=== PATIENT | male | born 1975 | race Hispanic/Latino ===

== ENCOUNTER 2017-12-26 12:51 | Emergency (ER) | payer OTHER ==
[2017-12-26 12:57] VITALS: TEMP 98.5
[2017-12-26] MEDS ORDERED: Lidocaine 5% Patch TD SCH (13:15)
--- NOTE | 2017-12-26 13:15 | ED PDOC ---
Arrival/HPI - General Chief Complaint: Back Pain Time Seen by Provider: 12/26/17 13:10 Historian: Patient - History of Present Illness Narrative History of Present Illness (Text): 12/26/17 13:12 42 y/o male, no significant pmh, nkda, c/o lt. lower back pain x 2 days after lifting at work with no fall or trauma. Aching pain, aggravated by movement, no numbness or tingling, no urinary or bowel incontinence or retention, no night sweat, no flank pain, no other medical or psychological complaints. Past Medical History - Provider Review Nursing Documentation Reviewed: Yes - Cardiac Hx Cardiac Disorders: No - Pulmonary Hx Respiratory Disorders: No - Neurological Hx Neurological Disorder: No - HEENT Hx HEENT Disorder: No - Renal Hx Renal Disorder: No - Endocrine/Metabolic Hx Endocrine Disorders: No - Hematological/Oncological Hx Blood Disorders: No - Integumentary Hx Dermatological Disorder: No - Musculoskeletal/Rheumatological Hx Musculoskeletal Disorders: Yes Hx Back Pain: Yes - Gastrointestinal Hx Gastrointestinal Disorders: No - Genitourinary/Gynecological Hx Genitourinary Disorders: No - Psychiatric Hx Psychophysiologic Disorder: Yes Hx Depression: Yes Hx Substance Use: No Family/Social History - Physician Review Nursing Documentation Reviewed: Yes Family/Social History: Unknown Family HX Smoking Status: Never Smoked Hx Alcohol Use: No Hx Substance Use: No Allergies/Home Meds Allergies/Adverse Reactions: Allergies No Known Allergies Allergy (Verified 12/26/17 12:53) Review of Systems - Review of Systems Constitutional: absent: Fatigue, Fevers Eyes: absent: Vision Changes ENT: absent: Hearing Changes Respiratory: absent: SOB, Cough Cardiovascular: absent: Chest Pain Gastrointestinal: absent: Abdominal Pain, Nausea, Vomiting Musculoskeletal: Back Pain. absent: Arthralgias, Neck Pain, Myalgias Skin: absent: Rash, Pruritis Neurological: absent: Headache Psychiatric: absent: Anxiety, Depression, Suicidal Ideation Physical Exam Vital Signs Reviewed: Yes Vital Signs Temp Pulse Resp BP Pulse Ox 12/26/17 12:53 98.5 F 78 16 146/90 97 Temperature: Afebrile Blood Pressure: Normal Pulse: Regular Respiratory Rate: Normal Appearance: Positive for: Well-Appearing, Non-Toxic, Comfortable Pain Distress: Moderate Mental Status: Positive for: Alert and Oriented X 3 - Systems Exam Head: Present: Atraumatic, Normocephalic Pupils: Present: PERRL Extroacular Muscles: Present: EOMI Conjunctiva: Present: Normal Mouth: Present: Moist Mucous Membranes Neck: Present: Normal Range of Motion Respiratory/Chest: Present: Clear to Auscultation, Good Air Exchange. No: Respiratory Distress, Accessory Muscle Use Cardiovascular: Present: Regular Rate and Rhythm, Normal S1, S2. No: Murmurs Abdomen: No: Tenderness, Distention, Peritoneal Signs Back: Present: Normal Inspection, Other (LS spine: +TTP and spasm noted on the lt. paraspinal of the LS spine, no midline tenderness or step off, FROM without limitation, sensation intact, motor 5/5, neurovascular intact. ). No: CVA Tenderness, Midline Tenderness Upper Extremity: Present: Normal Inspection. No: Cyanosis, Edema Lower Extremity: Present: Normal Inspection. No: Edema Neurological: Present: GCS=15, CN II-XII Intact, Speech Normal Skin: Present: Warm, Dry, Normal Color. No: Rashes Psychiatric: Present: Alert, Oriented x 3, Normal Insight, Normal Concentration Medical Decision Making ED Course and Treatment: 12/26/17 13:14 Differential: sprain vs. strain vs. spasm -Toradol/valium/lidoderm -Observe and reassess 12/26/17 14:39 -Pt. feels much better, walking with normal gait and posture, no focal neurological deficits. -Discharge home with Ibuprofen, flexeril, lidoderm, bed rest, heat compression, follow up with your own pmd within 2 days, return to the ER for any new or worsening signs or symptoms. - Medication Orders Current Medication Orders: Lidocaine (Lidoderm) 1 ea TD DAILY [facility] Last Admin: 12/26/17 14:02 Dose: 1 ea MAR Transdermal Patch Site Document 12/26/17 14:02 FERNANDA (Rec: 12/26/17 14:02 FERNANDA [id number]) Transdermal Patch Site Transdermal Patch Site Left Lower Back Discontinued Medications Diazepam (Valium) 5 mg PO ONCE ONE PRN Reason: Protocol Stop: 12/26/17 13:11 Last Admin: 12/26/17 14:02 Dose: 5 mg Ketorolac Tromethamine (Toradol) 60 mg IM STAT STA Stop: 12/26/17 13:11 Last Admin: 12/26/17 14:03 Dose: 60 mg MAR Pain Assessment Document 12/26/17 14:03 FERNANDA (Rec: 12/26/17 14:03 FERNANDA [id number]) Pain Reassessment Is this a pain reassessment? No Sleep Is patient sleeping during reassessment? 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 Disposition/Present on Arrival - Present on Arrival Any Indicators Present on Arrival: No History of DVT/PE: No History of Uncontrolled Diabetes: No Urinary Catheter: No History of Decub. Ulcer: No History Surgical Site Infection Following: None - Disposition Have Diagnosis and Disposition been Completed?: Yes Diagnosis: Lumbar strain Disposition: HOME/ ROUTINE Disposition Time: 13:14 Patient Plan: Discharge Condition: IMPROVED Additional Instructions: -Discharge home with Ibuprofen, flexeril, lidoderm, bed rest, heat compression, follow up with your own pmd within 2 days, return to the ER for any new or worsening signs or symptoms. Prescriptions: Cyclobenzaprine [Cyclobenzaprine HCl] 10 mg PO TID PRN #21 tab PRN Reason: Other Ibuprofen [Motrin Tab] 600 mg PO QID PRN #30 tab PRN Reason: Other Lidocaine 5% [Lidoderm] 1 patch TOP DAILY PRN #14 patch PRN Reason: Other Referrals: [facility] [place] - Follow up with primary Forms: [employer] (K[place]akh), WORK NOTE
[2017-12-26 15:07] VITALS: BP 120/63; PULSE 72; RESP 18; O2SAT 98
== END 2017-12-26 16:31 | disposition home or self-care (01) ==
LOC: MERGE 12:51 → ED 12:51
DX: S39.012A Strain of muscle, fascia and tendon of lower back, initial encounter (principal); X50.9XXA Other and unspecified overexertion or strenuous movements or postures, initial encounter; Y99.0 Civilian activity done for income or pay
CPT/HCPCS: 96372; 99282; J1885

== ENCOUNTER 2018-01-06 09:36 | Emergency (ER) | payer OTHER ==
--- NOTE | 2018-01-06 09:55 | ED PDOC ---
Arrival/HPI - General Chief Complaint: Back Pain Time Seen by Provider: 01/06/18 09:40 Historian: Patient - History of Present Illness Narrative History of Present Illness (Text): 01/06/18 09:50 42yo male with history of lumbar spine herniated disc bib EMS for complaint of severe spasm lower back pain. States that his back pain stopped for years, and then started again last month. He was seen here for the back pain last week. States the pain improved with the medication he was given, but then it started again. He was seen by a pain management on and was given ??muscle relaxer and Ibuprofen. States the crampy/spasm pain became worse this morning. He notes that he only took a muscle relaxer this morning. Denies urinary/fecal incontinence, saddle anesthesia, abdominal pain, focal weakness, fever, chills, urinary symptoms, any other complaint. Past Medical History - Provider Review Nursing Documentation Reviewed: Yes - Infectious Disease Hx of Infectious Diseases: None - Cardiac Hx Cardiac Disorders: No - Pulmonary Hx Respiratory Disorders: No - Neurological Hx Neurological Disorder: No - HEENT Hx HEENT Disorder: No - Renal Hx Renal Disorder: No - Endocrine/Metabolic Hx Endocrine Disorders: No - Hematological/Oncological Hx Blood Disorders: No - Integumentary Hx Dermatological Disorder: No - Musculoskeletal/Rheumatological Hx Musculoskeletal Disorders: Yes Hx Back Pain: Yes - Gastrointestinal Hx Gastrointestinal Disorders: No - Genitourinary/Gynecological Hx Genitourinary Disorders: No - Psychiatric Hx Psychophysiologic Disorder: Yes Hx Depression: Yes Hx Substance Use: No Family/Social History - Physician Review Nursing Documentation Reviewed: Yes Family/Social History: Unknown Family HX Smoking Status: Never Smoked Hx Alcohol Use: No Hx Substance Use: No Allergies/Home Meds Allergies/Adverse Reactions: Allergies No Known Allergies Allergy (Verified 01/06/18 09:48) Review of Systems - Physician Review All systems were reviewed & negative as marked: Yes - Review of Systems Constitutional: Normal Eyes: Normal ENT: Normal Respiratory: Normal Cardiovascular: Normal Gastrointestinal: Normal Genitourinary Male: Normal Musculoskeletal: Back Pain Skin: Normal Neurological: Normal Endocrine: Normal Hemo/Lymphatic: Normal Psychiatric: Normal Physical Exam Vital Signs Reviewed: Yes Vital Signs Temp Pulse Resp BP Pulse Ox 01/06/18 09:46 98.1 F 88 18 165/100 H 99 Temperature: Afebrile Blood Pressure: Normal Pulse: Regular Respiratory Rate: Normal Appearance: Positive for: Well-Appearing, Non-Toxic, Comfortable Pain Distress: None Mental Status: Positive for: Alert and Oriented X 3 - Systems Exam Head: Present: Atraumatic, Normocephalic Pupils: Present: PERRL Extroacular Muscles: Present: EOMI Conjunctiva: Present: Normal Mouth: Present: Moist Mucous Membranes Neck: Present: Normal Range of Motion Respiratory/Chest: Present: Clear to Auscultation, Good Air Exchange. No: Respiratory Distress, Accessory Muscle Use Cardiovascular: Present: Regular Rate and Rhythm, Normal S1, S2. No: Murmurs Abdomen: No: Tenderness, Distention, Peritoneal Signs Back: Present: Midline Tenderness, Paraspinal Tenderness, Pain with Leg Raise Upper Extremity: Present: Normal Inspection. No: Cyanosis, Edema Lower Extremity: Present: Normal Inspection. No: Edema Neurological: Present: GCS=15, CN II-XII Intact, Speech Normal Skin: Present: Warm, Dry, Normal Color. No: Rashes Psychiatric: Present: Alert, Oriented x 3, Normal Insight, Normal Concentration Medical Decision Making ED Course and Treatment: 01/06/18 11:35 PT presented for stated history. He was in mild physical discomfort on presentation. He was however neurologically intact and hemodynamically stable. His pain was controlled in ED with medication. He notes that his pain improved significantly on re evaluation LS CT was ordered to r/o LS abscess or any worsening derangement LS CT Left sided osteophyte with foraminal stenosis at L5-S1 Result was DW the pt. He was ambulatory on DC. He have a pain management and was advised to f/u with the pain management. He have analgesia and muscle relaxer at home. Rx of Lidoderm was added. - RAD Interpretation Radiology Orders: 01/06/18 09:48 LUMBAR SPINE W/O CONTRAST [CT] Stat - Medication Orders Current Medication Orders: Discontinued Medications Dexamethasone (Decadron Inj) 10 mg IM STAT STA Stop: 01/06/18 09:50 Last Admin: 01/06/18 09:54 Dose: 10 mg IM Administration Charges Document 01/06/18 09:54 [facility] (Rec: 01/06/18 09:54 [facility] [id number]) Injection Site MAR Injection Site Left Deltoid Charges for Administration # of IM Administrations 1 Diazepam (Valium) 2 mg PO ONCE ONE PRN Reason: Protocol Stop: 01/06/18 09:50 Last Admin: 01/06/18 09:54 Dose: 2 mg Ketorolac Tromethamine (Toradol) 30 mg IM STAT STA Stop: 01/06/18 09:50 Last Admin: 01/06/18 09:53 Dose: 30 mg MAR Pain Assessment Document 01/06/18 09:53 [facility] (Rec: 01/06/18 09:54 [facility] [id number]) Pain Reassessment Is this a pain reassessment? No Sleep Is patient sleeping during reassessment? No Presence of Pain Presence of Pain Yes Pain Scale Used Pain Scale Used Numeric Location Pain Location Body Site Back Description Intensity of Pain at present 10 IM Administration Charges Document 01/06/18 09:53 [facility] (Rec: 01/06/18 09:54 [facility] [id number]) Charges for Administration # of IM Administrations 1 Disposition/Present on Arrival - Present on Arrival Any Indicators Present on Arrival: No History of DVT/PE: No History of Uncontrolled Diabetes: No Urinary Catheter: No History of Decub. Ulcer: No History Surgical Site Infection Following: None - Disposition Have Diagnosis and Disposition been Completed?: Yes Diagnosis: Back pain Disposition: HOME/ ROUTINE Disposition Time: 11:40 Patient Plan: Discharge Condition: STABLE Discharge Instructions (ExitCare): Low Back Pain in Adults Additional Instructions: Follow up with your Doctor/Pain management Rest and continue with your medication Return to ED for any new or worsening symptoms Prescriptions: Lidocaine 5% [Lidoderm] 1 patch TOP BID #12 patch Referrals: America Paniagua MD [Medical Doctor] - Follow up with primary Forms: [employer] (Greek)
--- NOTE | 2018-01-06 11:29 | CT ---
Date of service: 01/06/2018 PROCEDURE: CT Lumbar Spine without contrast HISTORY: lower back pain COMPARISON: None available. TECHNIQUE: Axial computed tomography images were obtained of the lumbar spine without the use of intravenous contrast. Coronal and sagittal reformatted images were created and reviewed. Radiation dose: Total exam DLP = 355 mGy-cm. This CT exam was performed using one or more of the following dose reduction techniques: Automated exposure control, adjustment of the mA and/or kV according to patient size, and/or use of iterative reconstruction technique. FINDINGS: VERTEBRAE: Unremarkable. No fracture. Normal alignment. DISCS/SPINAL CANAL/NEURAL FORAMINA: L1-2: Unremarkable. L2-3: Unremarkable. L3-4: Unremarkable. L4-5: Unremarkable. L5-S1: There is a left-sided osteophyte with foraminal stenosis PARASPINAL SOFT TISSUES: Unremarkable. OTHER FINDINGS: None. IMPRESSION: No acute findings. 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
[2018-01-06 12:26] VITALS: BP 148/88; PULSE 82; RESP 16; TEMP 98; O2SAT 98
== END 2018-01-06 12:30 | disposition home or self-care (01) ==
LOC: ED 09:36
DX: M54.5 Low back pain (principal)
CPT/HCPCS: 72131; 96372; 99283; J1100; J1885